=== PATIENT | male | born 1975 | race Caucasian/White ===

== ENCOUNTER 2020-12-06 01:25 | Emergency (ER) | payer SELFPAY ==
[~2020-12-06] VITALS: Ht 172.7 cm; Wt 131.5 kg
[2020-12-06 01:25] VITALS: BP 157/98
[2020-12-06] MEDS ORDERED: AZIT250T PO (02:04)
[2020-12-06] MEDS ORDERED: PRD20T PO (02:04)
--- NOTE | 2020-12-06 02:04 | ED General ---
General Chief Complaint: General Problems/Pain Stated Complaint: COVID Nursing Triage Note: Patient states that his family tested positive for Covid 11/30/20. Patient was not tested but states he had been having symptoms. Patient states that his had a "coughing fit" and he got nervous. He wanted to get checked out. Patient denies any current shortness of breath. Patient does state he has had a fever that he has controlled with Tylenol and Motrin. Nursing Sepsis Screen: No Definite Risk Source of Information: Patient History of Present Illness Date Seen by Provider: Dec 06, 2020 Time Seen by Provider: 01:30 Initial Comments Patient is a 45-year-old male with daily fever, cough, body aches with presumptive Covid. Patient has 2 family members with Covid who tested positive approximately the same time patient developed symptoms. Patient drove a family member to the ED who is symptomatic from Covid and would like to be checked out. He denies shortness of breath chest pain palpitations. No dizziness lightheadedness, nausea or vomiting. No leg pain or swelling. Reports generalized malaise, headache and dry cough. No other acute symptoms or complaints. Denies history of asthma or chronic lung disease. Timing/Duration: 1 Week Severity: Mild Modifying Factors: improves with Other Associated Systoms: Other Allergies and Home Medications Allergies Coded Allergies: No Known Drug Allergies (Unverified , 12/06/20) Patient Home Medication List Home Medication List Reviewed: Yes Review of Systems Review of Systems Constitutional: see HPI EENTM: see HPI Respiratory: see HPI Cardiovascular: see HPI Gastrointestinal: see HPI Genitourinary: see HPI Musculoskeletal: see HPI Skin: see HPI Psychiatric/Neurological: See HPI Hematologic/Lymphatic: See HPI Immunological/Allergic: see HPI All Other Systems Reviewed Negative Unless Noted: Yes Past [id number] Hx Past Med/Social Hx: Reviewed Nursing Past Med/Soc Hx Patient Social History Alcohol Use: Denies Use Smoking Status: Never a Smoker Recent Infectious Disease Expo: Yes Past Medical History Surgeries: No Respiratory: No Cardiac: Yes Hypertension Neurological: No Genitourinary: No Gastrointestinal: No Musculoskeletal: No Endocrine: No HEENT: No Cancer: No Psychosocial: No Integumentary: No Physical Exam Vital Signs Vital Signs - First Documented 12/06/20 01:25 Temp 36.9 Pulse 104 Resp 18 B/P (MAP) 157/98 (117) Pulse Ox 93 O2 Delivery Room Air Capillary Refill : Less Than 3 Seconds Height, Weight, BMI Height: '" Weight: lbs. oz. kg; 44.00 BMI Method: General Appearance: No Apparent Distress Eyes: Bilateral Eye Normal Inspection, Bilateral Eye PERRL, Bilateral Eye EOMI HEENT: PERRL/EOMI, Pharynx Normal Neck: Full Range of Motion, Non Tender, Supple Respiratory: Chest Non Tender, Lungs Clear, Normal Breath Sounds, Accessory Muscle Use Cardiovascular: Regular Rate, Rhythm Gastrointestinal: Soft Neurologic/Psychiatric: Alert, Oriented x3 Skin: Normal Color Progress/Results/Core Measures Suspected Sepsis Recent Fever Within 48 Hours: No Infection Criteria Present: Suspected New Infection New/Unexplained Altered Menta: No Sepsis Screen: No Definite Risk SIRS Temperature: Pulse: 104 Respiratory Rate: 18 Blood Pressure 157 /98 Mean: 117 Results/Orders Vital Signs/I&O 12/06/20 01:25 Temp 36.9 Pulse 104 Resp 18 B/P (MAP) 157/98 (117) Pulse Ox 93 O2 Delivery Room Air Capillary Refill : Less Than 3 Seconds Blood Pressure Mean: 117 Departure Communication (Admissions) Patient with presumptive Covid. Minimally symptomatic in the emergency department. Recommend continue home monitoring, steroids and antibiotics prescribed. PCP follow-up as needed. Return precautions reviewed. Impression Primary Impression: COVID-19 Disposition: 01 HOME, SELF-CARE Condition: Stable Departure-Patient Inst. Decision time for Depature: 02:02 Referrals: NO,LOCAL PHYSICIAN (PCP/Family) Primary Care Physician Patient Instructions: Coronavirus Disease 2019 (COVID-19) ED Add. Discharge Instructions: Please take newly prescribed medications as directed and Tylenol as needed for fever. Monitor O2 saturations and return to the ED if persistent oxygen levels less than 90%. Follow-up with PCP as needed. Return to the ED if new or worsening symptoms. All discharge instructions reviewed with patient and/or family. Voiced understanding. Scripts Prednisone (Prednisone) 20 Mg Tab 40 MG PO DAILY, #6 TAB 0 Refills Prov: REE CALVERT DO 12/06/20 Azithromycin (Zithromax) 250 Mg Tablet 250 MG PO UD, #6 TAB TAKE 2 TABLETS TODAY, THEN TAKE 1 TABLET DAILY FOR 4 MORE DAYS Prov: REE CALVERT DO 12/06/20 REE CALVERT DO Dec 06, 2020 02:04
== END 2020-12-06 02:14 | disposition home or self-care (01) ==
LOC: ER FS 01:28
DX: U07.1 COVID-19 (principal); I10 Essential (primary) hypertension
CPT/HCPCS: 99281

== ENCOUNTER 2021-02-17 06:02 | Emergency (ER) | payer SELFPAY ==
[~2021-02-17] VITALS: Ht 182.8 cm; Wt 135.0 kg
[~2021-02-17 06:02] MED LIST: AZIT250T PO; PRD20T PO
[2021-02-17 06:10] VITALS: BP 154/102
--- NOTE | 2021-02-17 06:24 | ED EENT ---
History of Present Illness General Chief Complaint: Oral/Throat Problems Stated Complaint: TROUBLE SWALLOWING Nursing Triage Note: Patient states that he woke up having throat pain and trouble swallowing. Patient also states that he spit out some blood. History of Present Illness Date Seen by Provider: Feb 17, 2021 Time Seen by Provider: 06:19 Initial Comments 45-year-old male presents with "throat pain" feels like there is something like compass operator loose at the top of the back of his throat behind his tongue. Feels like he has some trouble swallowing. Patient reports that this morning he got u p clear his throat hard and spit what he feels like there is a little bit of blood. Patient reports he has a lot of throat clearing and postnasal drip. He denies any frequent heartburn. New cough fever chills shortness of breath or wheezing. Allergies and Home Medications Allergies Coded Allergies: No Known Drug Allergies (Unverified , 12/06/20) Home Medications Azithromycin 250 Mg Tablet, 250 MG PO UD TAKE 2 TABLETS TODAY, THEN TAKE 1 TABLET DAILY FOR 4 MORE DAYS Prescribed by: REE CALVERT on 12/06/20203 Prednisone 20 Mg Tab, 40 MG PO DAILY Prescribed by: REE CALVERT on 12/06/20203 Patient Home Medication List Home Medication List Reviewed: Yes Review of Systems Review of Systems Constitutional: No chills, No fever Eyes: No Symptoms Reported Ears: No Symptoms Reported Nose: no symptoms reported Mouth: see HPI Throat: no symptoms reported Respiratory: No cough, No short of breath Cardiovascular: No chest pain, No palpitations Gastrointestinal: no symptoms reported Musculoskeletal: no symptoms reported Skin: no symptoms reported Neurological: No Symptoms Reported Past [id number]-[id number]-Lyosop Hx Past Med/Social Hx: Reviewed Nursing Past Med/Soc Hx Patient Social History Recent Infectious Disease Expo: No Past Medical History Surgeries: No Respiratory: No Cardiac: Yes Hypertension Neurological: No Genitourinary: No Gastrointestinal: No Musculoskeletal: No Endocrine: No HEENT: No Cancer: No Psychosocial: No Integumentary: No Physical Exam Vital Signs Vital Signs - First Documented 02/17/21 06:10 Temp 37.1 Pulse 98 Resp 18 B/P (MAP) 154/102 (119) Pulse Ox 95 O2 Delivery Room Air Height, Weight, BMI Height: '" Weight: lbs. oz. kg; 40.00 BMI Method: General Appearance: WD/WN, no apparent distress Nose: normal inspection Mouth/Throat: other (Extremely swollen/large uvula, some mildly enlarged tonsils. Tonsils 3+. Mild erythema and irritation.) Cardiovascular: normal peripheral pulses, regular rate, rhythm Respiratory: lungs clear, normal breath sounds Gastrointestinal: non tender, soft Neurologic/Psychiatric: alert, normal mood/affect, oriented x 3 Skin: normal color, warm/dry Progress/Results/Core Measures Results/Orders Vital Signs/I&O 02/17/21 06:10 Temp 37.1 Pulse 98 Resp 18 B/P (MAP) 154/102 (119) Pulse Ox 95 O2 Delivery Room Air Blood Pressure Mean: 119 Progress Progress Note : Progress Note Patient with large tonsils and uvula. They are mildly irritated. Patient does not have any symptoms that seem to be infectious. Symptoms and the more as result of possible postnasal drip. I discussed with him that it could be virus, strep, reflux or postnasal drip can all cause these type symptoms. Patient admits to frequent snoring. I recommended he follow-up with Dr. Wang/ENT due to the significant likely sleep apnea from obstruction. I will have him start with nasal steroid and antiallergy medication such as Claritin, Zyrtec or Sherice. He is to follow-up with a primary care provider for further outpatient management along with ENT. Departure Impression Primary Impression: Post-nasal drainage Additional Impression: Uvular hypertrophy Disposition: 01 HOME, SELF-CARE Condition: Stable Departure-Patient Inst. Referrals: NO,LOCAL PHYSICIAN (PCP/Family) Primary Care Physician Patient Instructions: Chronic Sinusitis, Seasonal Allergies in Adults, Viral Pharyngitis (DC) Add. Discharge Instructions: Nasal steroid such as Nasacort or Flonase daily as instructed on package Antiallergy medication such as Claritin, Sherice or Zyrtec as directed on package Follow-up with Dr. Wang or other ENT of your choice for further evaluation Follow-up with your primary care provider in 3 to 4 days if symptoms or not improving, return to the ER if symptoms continue to worsen, worsening shortness of breath, difficulty swallowing or any other concerns. All discharge instructions reviewed with patient and/or family. Voiced understanding. MARINA STEEL DO Feb 17, 2021 06:24
== END 2021-02-17 06:41 | disposition home or self-care (01) ==
LOC: EDUNIT# 06:02 → ER FS 06:04
DX: R09.82 Postnasal drip (principal); K13.79 Other lesions of oral mucosa; I10 Essential (primary) hypertension; Z79.52 Long term (current) use of systemic steroids
CPT/HCPCS: 99282